=== PATIENT | female | born 1980 | race Hispanic/Latino ===

== ENCOUNTER 2022-02-16 14:32 | Outpatient (CLI) | payer BC | END 2022-02-16 14:33 | disposition home or self-care (01) | LOC: EDSEX → LABBT 14:32 | PROVIDERS: ATTEND Surgery | DX: K81.1 Chronic cholecystitis (principal); Z20.822 Contact with and (suspected) exposure to COVID-19 | CPT/HCPCS: U0003; U0005 ==

== ENCOUNTER 2022-02-21 05:57 | Day surgery (SDC) | payer BC ==
[2022-02-16 15:34] VITALS: BMI 37.3
[2022-02-21] MEDS ORDERED: Lidocaine 1% w/Epinephrine 1:100K 20 ML VIAL ONE (06:38)
[2022-02-21] MEDS ORDERED: Bupivacaine PF 0.5% 30 ML VIAL ONE (06:38)
[2022-02-21] MEDS ORDERED: fentaNYL Citrate/PF 100 MCG/2 ML SYRINGE ONE ×2 (07:01→07:02)
[2022-02-21] MEDS ORDERED: Sodium Chloride 0.9% 100 ML ONE (07:23)
[2022-02-21] MEDS ORDERED: CEFAZOLIN 2 GM VIAL ONE (07:23)
[2022-02-21] MEDS ORDERED: Lidocaine 1% PF 5 ML VIAL ONE (07:36)
[2022-02-21] MEDS ORDERED: Ketorolac Tromethamine 30 MG/ML VIAL ONE (07:36)
[2022-02-21] MEDS ORDERED: Ondansetron PF 4 MG/2 ML Vial ONE (07:36)
[2022-02-21] MEDS ORDERED: Dexamethasone 20 MG/5 ML VIAL ONE (07:36)
[2022-02-21] MEDS ORDERED: Rocuronium Bromide 10 MG/ML (10ML VIAL) ONE (07:36)
[2022-02-21] MEDS ORDERED: PROPOFOL 200 MG/20 ML VIAL ONE (07:36)
[2022-02-21] MEDS ORDERED: Glycopyrrolate 0.2 MG/ML 5 ML SYRINGE ONE (07:36)
[2022-02-21] MEDS ORDERED: ePHEDrine 50 MG/ML VIAL ONE (07:36)
[2022-02-21] MEDS ORDERED: Fentanyl 100 MCG/2 ML VIAL ONE ×2 (09:38→10:09)
[2022-02-21] MEDS ORDERED: Acetaminophen/Codeine 30-300mg Tablet ONE (11:50)
== END 2022-02-21 12:10 | disposition home or self-care (01) ==
LOC: SDC 05:57
PROVIDERS: ATTEND Surgery
PROC: 0FT44ZZ Resection of Gallbladder, Percutaneous Endoscopic Approach (ICD-10-PCS; principal; 2022-02-21)
DX: K80.10 Calculus of gallbladder with chronic cholecystitis without obstruction (principal); E66.9 Obesity, unspecified; Z68.37 Body mass index [BMI] 37.0-37.9, adult; Z79.899 Other long term (current) drug therapy
CPT/HCPCS: 88304; C1776; J0690; J1100; J1885; J2405; J2704; J3010; J3490; S0020